=== PATIENT | male | born 1970 | race Caucasian/White ===

== ENCOUNTER 2020-09-05 10:22 | Inpatient (IN) | payer OTHER ==
[2020-09-05] MEDS ORDERED: cloNIDine HCL 0.1 MG TABLET PO PRN (15:30)
[2020-09-05] MEDS ORDERED: MENTHOL/PHENOL 1 EACH UD MM PRN (15:30)
[2020-09-05] MEDS ORDERED: MAG HYDROX/AL HYDROX/SIMETH 30 ML UNIT-DOSE CUP PO PRN (15:30)
[2020-09-05] MEDS ORDERED: methaDONE HCL 10 MG TABLET (FOR DETOX USE ONLY) PO ONE (15:30)
[2020-09-05] MEDS ORDERED: MAGNESIUM HYDROX 2400MG/30ML ORAL SUSPENSION 30 ML CUP PO PRN (15:30)
[2020-09-05] MEDS ORDERED: ACETAMINOPHEN 325 MG TABLET (FP) PO PRN ×2 (15:30)
[2020-09-05] MEDS ORDERED: BISMUTH SUBSALICYLATE 524 MG/30 ML PO PRN (15:30)
[2020-09-05] MEDS ORDERED: MAGNESIUM CITRATE 300 ML BOTTLE PO PRN (15:30)
[2020-09-05] MEDS ORDERED: ONDANSETRON *ODT* 4 MG TABLET SL PRN (15:30)
[2020-09-05] MEDS ORDERED: NICOTINE POLACRILEX 2 MG GUM BUC PRN (15:30)
[2020-09-05 16:15] VITALS: BMI 25.7
[2020-09-05] MEDS: NICOTINE 21 MG/24 HOURS TOPICAL PATCH TD SCH (16:49)
[2020-09-05] MEDS: hydrOXYzine PAMOATE 25 MG CAPSULE (FP) PO SCH ×2 (17:00→22:31)
[2020-09-05 17:13] LABS: CALCIUM 8.5 mg/dL (8.5-10.1)
[2020-09-05 17:14] LABS: ALBUMIN 3.3 g/dl (3.4-5.0); BLOOD UREA NITROGEN 12.4 mg/dL (7-18)
[2020-09-05 17:15] LABS: HEMOGLOBIN 12.6 GM/dL (11.7-16.9); MCH 31.4 pg (25.7-33.7); MCHC 34.1 g/dl (32.0-35.9); MEAN PLT VOLUME 8.4 fl (7.5-11.1); PLATELET COUNT 281 K/MM3 (134-434); RBC 4.02 M/mm3 (4.00-5.60); RDW 14.1 % (11.9-15.9); WHITE BLOOD COUNT 8.3 K/mm3 (4.0-10.0)
[2020-09-05 17:17] LABS: CREATININE 0.7 mg/dL (0.55-1.3)
[2020-09-05 17:19] LABS: BILIRUBIN,TOTAL 1.2 mg/dL (0.2-1); TOT PROT 7.4 g/dl (6.4-8.2)
[2020-09-05] MEDS: THIAMINE HCL 100 MG TABLET (FP) PO SCH (22:31)
[2020-09-05] MEDS: MELATONIN 5 MG TABLETS PO SCH (22:33)
[2020-09-06] MEDS: hydrOXYzine PAMOATE 25 MG CAPSULE (FP) PO SCH ×5 (05:14→21:18)
[2020-09-06] MEDS: IBUPROFEN 400 MG TABLET (FP) PO PRN ×2 (05:20→15:12)
[2020-09-06] MEDS ORDERED: methaDONE HCL 10 MG TABLET (FOR DETOX USE ONLY) ONE (09:11)
[2020-09-06] MEDS: METHOCARBAMOL 500 MG TABLET PO PRN (09:43)
[2020-09-06] MEDS: NICOTINE 21 MG/24 HOURS TOPICAL PATCH TD SCH (09:44)
[2020-09-06] MEDS: PRENATAL VITAMINS W/ FOLIC ACID TABLET (FP) PO SCH (09:45)
[2020-09-06] MEDS: diazePAM 5 MG TABLET PO PRN (17:11)
[2020-09-06] MEDS: THIAMINE HCL 100 MG TABLET (FP) PO SCH (21:18)
[2020-09-06] MEDS: MELATONIN 5 MG TABLETS PO SCH (21:21)
[2020-09-07] MEDS: hydrOXYzine PAMOATE 25 MG CAPSULE (FP) PO SCH ×4 (05:21→18:15)
[2020-09-07] MEDS: IBUPROFEN 400 MG TABLET (FP) PO PRN (09:14)
[2020-09-07] MEDS: METHOCARBAMOL 500 MG TABLET PO PRN ×2 (09:14→19:09)
[2020-09-07] MEDS ORDERED: methaDONE HCL 10 MG TABLET (FOR DETOX USE ONLY) PO ONE (10:00)
[2020-09-07] MEDS: NICOTINE 21 MG/24 HOURS TOPICAL PATCH TD SCH (10:03)
[2020-09-07] MEDS: PRENATAL VITAMINS W/ FOLIC ACID TABLET (FP) PO SCH (10:03)
[2020-09-07] MEDS: CLINDAMYCIN HCL 150 MG CAPSULE (FP) PO SCH ×2 (11:43→17:35)
[2020-09-07] MEDS: CLINDAMYCIN PHOSPHATE 1% TOPICAL GEL 30 GM TUBE TP SCH (11:44)
[2020-09-07] MEDS: diazePAM 5 MG TABLET PO PRN (17:35)
[2020-09-08] MEDS: CLINDAMYCIN PHOSPHATE 1% TOPICAL GEL 30 GM TUBE TP SCH ×3 (00:04→22:05)
[2020-09-08] MEDS: MELATONIN 5 MG TABLETS PO SCH ×2 (00:05→22:05)
[2020-09-08] MEDS: hydrOXYzine PAMOATE 25 MG CAPSULE (FP) PO SCH ×6 (00:06→22:05)
[2020-09-08] MEDS: THIAMINE HCL 100 MG TABLET (FP) PO SCH ×2 (00:07→22:05)
[2020-09-08] MEDS: CLINDAMYCIN HCL 150 MG CAPSULE (FP) PO SCH ×4 (00:32→18:13)
[2020-09-08] MEDS ORDERED: methaDONE HCL 10 MG TABLET (FOR DETOX USE ONLY) ONE (09:25)
[2020-09-08] MEDS: PRENATAL VITAMINS W/ FOLIC ACID TABLET (FP) PO SCH (10:03)
[2020-09-08] MEDS: NICOTINE 21 MG/24 HOURS TOPICAL PATCH TD SCH (10:03)
[2020-09-08] MEDS: IBUPROFEN 400 MG TABLET (FP) PO PRN (10:06)
[2020-09-08] MEDS: diazePAM 5 MG TABLET PO PRN ×3 (12:01→22:07)
[2020-09-08] MEDS: METHOCARBAMOL 500 MG TABLET PO PRN ×2 (12:01→18:15)
[2020-09-08 22:59] VITALS: BP 111/82; PULSE 103; TEMP 97.7
[2020-09-09] MEDS: CLINDAMYCIN HCL 150 MG CAPSULE (FP) PO SCH ×2 (01:33→05:32)
[2020-09-09] MEDS: hydrOXYzine PAMOATE 25 MG CAPSULE (FP) PO SCH (05:32)
[2020-09-09] MEDS ORDERED: cloNIDine HCL 0.1 MG TABLET PO PRN (06:08)
[2020-09-09] MEDS ORDERED: methaDONE HCL 10 MG TABLET (FOR DETOX USE ONLY) PO ONE (10:00)
[2020-09-10] MEDS ORDERED: methaDONE HCL 10 MG TABLET (FOR DETOX USE ONLY) PO ONE (10:00)
== END 2020-09-08 23:54 | disposition short-term general hospital (02) | DRG 773 ==
LOC: YASAS 10:22 → Y6N 15:56 → Y3N 09-08 17:24
PROVIDERS: ADMIT Allergy & Immunology; ATTEND Allergy & Immunology
PROC: HZ2ZZZZ Detoxification Services for Substance Abuse Treatment (ICD-10-PCS; principal; 2020-09-05)
DX: F11.23 Opioid dependence with withdrawal (principal); F14.20 Cocaine dependence, uncomplicated; F17.210 Nicotine dependence, cigarettes, uncomplicated; F32.9 Major depressive disorder, single episode, unspecified; Z21 Asymptomatic human immunodeficiency virus [HIV] infection status; B18.2 Chronic viral hepatitis C; L03.113 Cellulitis of right upper limb; L03.114 Cellulitis of left upper limb; M25.532 Pain in left wrist; M79.642 Pain in left hand; T07.XXXD Unspecified multiple injuries, subsequent encounter; Y09 Assault by unspecified means; Z56.0 Unemployment, unspecified; Z59.0 Homelessness; Z99.89 Dependence on other enabling machines and devices
CPT/HCPCS: 36415; 80053; 85027; 86780; 93005; 93010; 99282-25; C9803; J0735; U0003

== ENCOUNTER 2020-09-08 23:44 | Inpatient (IN) | payer OTHER ==
[2020-09-09] MEDS ORDERED: VANCOMYCIN 1,000 MG in DEXTROSE 5%-WATER - 250 ML IVPB ONE (00:37)
[2020-09-09] MEDS ORDERED: CLINDAMYCIN 600MG PREMIX IVPB 600 MG/50 ML BAG IVPB ONE ×2 (00:37→00:48)
[2020-09-09] MEDS ORDERED: VANCOMYCIN 1 GRAM (PRE-DOCKED) 1,000 MG/250 ML BAG IVPB ONE (00:48)
[2020-09-09] MEDS ORDERED: morphine CARPU-JECT 2 MG/1 ML DISP.SYRIN IVPUSH ONE (01:07)
[2020-09-09 01:14] LABS: BASO % 0.9 % (0-2.0); EOS % 4.8 % (0-4.5); HEMATOCRIT 34.8 % (35.4-49); HEMOGLOBIN 11.4 GM/dL (11.7-16.9); LYMPH % 29.8 % (8-40); MCH 30.9 pg (25.7-33.7); MCHC 32.9 g/dl (32.0-35.9); MEAN CELL VOLUME 93.8 fl (80-96); MEAN PLT VOLUME 8.5 fl (7.5-11.1); MONO % 9.8 % (3.8-10.2); NEUT % 54.7 % (42.8-82.8); PLATELET COUNT 264 K/MM3 (134-434); RBC 3.71 M/mm3 (4.00-5.60); RDW 14.3 % (11.9-15.9); WHITE BLOOD COUNT 7.1 K/mm3 (4.0-10.0)
[2020-09-09] MEDS ORDERED: MORPHINE SULFATE 2 MG/ML VIAL ONE (01:26)
[2020-09-09 01:29] LABS: POTASSIUM 5.2 mmol/L (3.5-5.1)
[2020-09-09 01:31] LABS: CALCIUM 9.2 mg/dL (8.5-10.1)
[2020-09-09 01:32] LABS: ALBUMIN 3.4 g/dl (3.4-5.0)
[2020-09-09 01:36] LABS: BILIRUBIN,TOTAL 0.4 mg/dL (0.2-1); TOT PROT 7.5 g/dl (6.4-8.2)
[2020-09-09 02:31] LABS: ERYTHROCYTE SEDIMENTATION RATE 40 mm/hr (0-10)
[2020-09-09] MEDS ORDERED: FOLIC ACID INJECTION - 1 MG, THIAMINE HCL 100 MG, MULTIVIT INJECTION ADULT 10 ML in SOD... IVPB ONE (06:00)
[2020-09-09] MEDS ORDERED: chlordiazePOXIDE HCL 25 MG CAPSULE PO PRN (08:26)
[2020-09-09] MEDS: NICOTINE 14 MG/24 HOURS TOPICAL PATCH TD SCH (09:37)
[2020-09-09] MEDS: FOLIC ACID 1 MG TABLET (FP) PO SCH (09:37)
[2020-09-09] MEDS: THIAMINE HCL 100 MG TABLET (FP) PO SCH (09:38)
[2020-09-09] MEDS: ACETAMINOPHEN 325 MG TABLET (FP) PO PRN ×2 (09:38→22:05)
[2020-09-09] MEDS: ENOXAPARIN NA (PORCINE) 40 MG/0.4 ML DISP.SYRIN SQ SCH (09:39)
[2020-09-09] MEDS ORDERED: FLU VACCINE (FLULAVAL) PF 60 MCG/0.5 ML SYRINGE 2020-2021 IM ONE (10:30)
[2020-09-09] MEDS ORDERED: PNEUMOC 13-VAL CONJ-DIP CRM/PF 0.5 ML DISP.SYRIN IM ONE (10:30)
[2020-09-09] MEDS ORDERED: METHADONE HCL 10 MG TABLET PO ONE (13:05)
[2020-09-09 13:09] VITALS: BMI 17.4
[2020-09-09 13:43] LABS: BASO % 1.1 % (0-2.0); EOS % 4.7 % (0-4.5); HEMATOCRIT 34.6 % (35.4-49); HEMOGLOBIN 11.3 GM/dL (11.7-16.9); LYMPH % 27.5 % (8-40); MCH 30.6 pg (25.7-33.7); MCHC 32.8 g/dl (32.0-35.9); MEAN CELL VOLUME 93.2 fl (80-96); MEAN PLT VOLUME 9.1 fl (7.5-11.1); MONO % 8.5 % (3.8-10.2); NEUT % 58.2 % (42.8-82.8); PLATELET COUNT 267 K/MM3 (134-434); RBC 3.71 M/mm3 (4.00-5.60); RDW 13.8 % (11.9-15.9); RETICULOCYTES 0.94 % (0.5-1.5); WHITE BLOOD COUNT 5.6 K/mm3 (4.0-10.0)
[2020-09-09 14:02] LABS: POTASSIUM 4.6 mmol/L (3.5-5.1)
[2020-09-09 14:06] LABS: CALCIUM 8.3 mg/dL (8.5-10.1)
[2020-09-09 14:07] LABS: BLOOD UREA NITROGEN 14.8 mg/dL (7-18); MAGNESIUM 1.9 mg/dL (1.8-2.4)
[2020-09-09 14:09] LABS: URIC ACID 2.9 mg/dL (2.6-7.2)
[2020-09-09 14:10] LABS: CREATININE 0.7 mg/dL (0.55-1.3)
[2020-09-09 14:11] LABS: BILIRUBIN,TOTAL 0.6 mg/dL (0.2-1); TOT PROT 6.9 g/dl (6.4-8.2)
[2020-09-10 08:27] LABS: BASO % 0.9 % (0-2.0); EOS % 4.3 % (0-4.5); HEMATOCRIT 36.6 % (35.4-49); HEMOGLOBIN 12.2 GM/dL (11.7-16.9); LYMPH % 24.2 % (8-40); MCH 31.1 pg (25.7-33.7); MCHC 33.4 g/dl (32.0-35.9); MEAN CELL VOLUME 93.1 fl (80-96); MEAN PLT VOLUME 8.8 fl (7.5-11.1); MONO % 9.3 % (3.8-10.2); NEUT % 61.3 % (42.8-82.8); PLATELET COUNT 289 K/MM3 (134-434); RBC 3.93 M/mm3 (4.00-5.60); RDW 13.7 % (11.9-15.9)
[2020-09-10 08:46] LABS: POTASSIUM 4.7 mmol/L (3.5-5.1)
[2020-09-10 08:48] LABS: BLOOD UREA NITROGEN 19.4 mg/dL (7-18); CALCIUM 8.9 mg/dL (8.5-10.1); MAGNESIUM 2.3 mg/dL (1.8-2.4)
[2020-09-10 08:52] LABS: CREATININE 0.9 mg/dL (0.55-1.3)
[2020-09-10] MEDS: ENOXAPARIN NA (PORCINE) 40 MG/0.4 ML DISP.SYRIN SQ SCH (10:21)
[2020-09-10] MEDS: THIAMINE HCL 100 MG TABLET (FP) PO SCH (10:21)
[2020-09-10] MEDS: NICOTINE 14 MG/24 HOURS TOPICAL PATCH TD SCH (10:21)
[2020-09-10] MEDS: FOLIC ACID 1 MG TABLET (FP) PO SCH (10:21)
[2020-09-10] MEDS ORDERED: METHADONE HCL 5 MG TABLET PO ONE (13:05)
[2020-09-10] MEDS: ACETAMINOPHEN 325 MG TABLET (FP) PO PRN (16:05)
[2020-09-11] MEDS ORDERED: PT OWN MED DRAWER 7, Y5N ONE (06:59)
[2020-09-11] MEDS: FOLIC ACID 1 MG TABLET (FP) PO SCH (09:10)
[2020-09-11] MEDS: NICOTINE 14 MG/24 HOURS TOPICAL PATCH TD SCH (09:10)
[2020-09-11] MEDS: THIAMINE HCL 100 MG TABLET (FP) PO SCH (09:10)
[2020-09-11] MEDS: ENOXAPARIN NA (PORCINE) 40 MG/0.4 ML DISP.SYRIN SQ SCH (09:11)
[2020-09-11 10:01] VITALS: BP 125/74; PULSE 86; TEMP 98
== END 2020-09-11 11:08 | disposition other institution (70) | DRG 351 ==
LOC: JER 23:44 → JERBED 09-09 02:52 → J8W 09-09 09:11
PROVIDERS: ADMIT Internal Medicine; ATTEND Internal Medicine
PROC: HZ2ZZZZ Detoxification Services for Substance Abuse Treatment (ICD-10-PCS; principal; 2020-09-09)
DX: M79.89 Other specified soft tissue disorders (principal); F11.20 Opioid dependence, uncomplicated; F14.10 Cocaine abuse, uncomplicated; D64.9 Anemia, unspecified; F17.210 Nicotine dependence, cigarettes, uncomplicated; B19.20 Unspecified viral hepatitis C without hepatic coma; E87.5 Hyperkalemia; Z21 Asymptomatic human immunodeficiency virus [HIV] infection status
CPT/HCPCS: 36415; 71045-TC-FY; 73130-TC-LT-FY; 73200-TC-RT; 80048; 80053; 82728; 82746; 83540; 83550; 83735; 84100; 84550; 85025; 85045; 85651; 86038; 86140; 86359; 86360; 87536; 90670; 93005; 93010; 99285-25; C9803; G0008; G0009; Q2036; U0003

== ENCOUNTER 2020-09-11 11:28 | Inpatient (IN) | payer OTHER ==
[2020-09-11] MEDS ORDERED: P-EPHED 60MG/TRIPROLIDI 2.5MG TABLET PO PRN (12:21)
[2020-09-11] MEDS ORDERED: MAGNESIUM CITRATE 300 ML BOTTLE PO PRN (12:21)
[2020-09-11] MEDS ORDERED: LOPERAMIDE HCL 2 MG CAPSULE PO PRN (12:21)
[2020-09-11] MEDS ORDERED: MAG HYDROX/AL HYDROX/SIMETH 30 ML UNIT-DOSE CUP PO PRN (12:21)
[2020-09-11] MEDS ORDERED: NICOTINE POLACRILEX 2 MG GUM BUC PRN (12:21)
[2020-09-11] MEDS ORDERED: MAGNESIUM HYDROX 2400MG/30ML ORAL SUSPENSION 30 ML CUP PO PRN (12:21)
[2020-09-11] MEDS ORDERED: guaiFENesin 200 MG/10 ML 10 ML UNIT-DOSE CUPS PO PRN (12:21)
[2020-09-11] MEDS ORDERED: ACETAMINOPHEN 325 MG TABLET (FP) PO PRN ×2 (12:21→12:22)
[2020-09-11 12:42] VITALS: BMI 25.7
[2020-09-11] MEDS: NICOTINE 7 MG/24 HOURS TOPICAL PATCH TD SCH (13:27)
[2020-09-11] MEDS: PRENATAL VITAMINS W/ FOLIC ACID TABLET (FP) PO SCH (13:28)
[2020-09-11] MEDS: hydrOXYzine PAMOATE 25 MG CAPSULE (FP) PO SCH ×4 (13:34→21:09)
[2020-09-11] MEDS: IBUPROFEN 400 MG TABLET (FP) PO PRN (21:06)
[2020-09-11] MEDS: THIAMINE HCL 100 MG TABLET (FP) PO SCH (21:09)
[2020-09-11] MEDS: MELATONIN 5 MG TABLETS PO SCH (21:09)
[2020-09-12] MEDS: hydrOXYzine PAMOATE 25 MG CAPSULE (FP) PO SCH ×3 (06:27→13:24)
[2020-09-12] MEDS ORDERED: MASKS NR ONE (07:05)
[2020-09-12] MEDS: METHOCARBAMOL 500 MG TABLET PO PRN ×2 (09:56→21:02)
[2020-09-12] MEDS: IBUPROFEN 400 MG TABLET (FP) PO PRN ×2 (09:56→19:31)
[2020-09-12] MEDS: NICOTINE 7 MG/24 HOURS TOPICAL PATCH TD SCH (09:57)
[2020-09-12] MEDS: PRENATAL VITAMINS W/ FOLIC ACID TABLET (FP) PO SCH (09:57)
[2020-09-12] MEDS: METHYL SALICYLATE/MENTHOL OINT 30 GM TUBE TP SCH ×2 (13:24→21:04)
[2020-09-12] MEDS: hydrOXYzine PAMOATE 50 MG CAPSULE (FP) PO PRN ×2 (16:15→21:02)
[2020-09-12] MEDS ORDERED: SUVOREXANT 10 MG TABLET PO PRN (17:17)
[2020-09-12] MEDS: MELATONIN 5 MG TABLETS PO SCH (21:03)
[2020-09-12] MEDS: THIAMINE HCL 100 MG TABLET (FP) PO SCH (21:03)
[2020-09-12] MEDS: risperiDONE 1 MG TABLET PO SCH (21:04)
[2020-09-13] MEDS: hydrOXYzine PAMOATE 50 MG CAPSULE (FP) PO PRN (06:06)
[2020-09-13] MEDS: IBUPROFEN 400 MG TABLET (FP) PO PRN (06:07)
[2020-09-13 07:03] VITALS: BP 128/81; PULSE 110; TEMP 97.9
[2020-09-13] MEDS: risperiDONE 1 MG TABLET PO SCH (09:07)
[2020-09-13] MEDS: METHYL SALICYLATE/MENTHOL OINT 30 GM TUBE TP SCH (09:08)
[2020-09-13] MEDS: NICOTINE 7 MG/24 HOURS TOPICAL PATCH TD SCH (09:08)
[2020-09-13] MEDS: PRENATAL VITAMINS W/ FOLIC ACID TABLET (FP) PO SCH (09:08)
== END 2020-09-13 10:07 | disposition left against medical advice (07) | DRG 770 ==
LOC: YASAS 11:28 → Y5N 12:51
PROVIDERS: ADMIT Allergy & Immunology; ATTEND Allergy & Immunology
PROC: HZ42ZZZ Group Counseling for Substance Abuse Treatment, Cognitive-Behavioral (ICD-10-PCS; principal; 2020-09-12)
DX: F11.20 Opioid dependence, uncomplicated (principal); F14.20 Cocaine dependence, uncomplicated; F17.210 Nicotine dependence, cigarettes, uncomplicated; F32.9 Major depressive disorder, single episode, unspecified; B18.2 Chronic viral hepatitis C; Z21 Asymptomatic human immunodeficiency virus [HIV] infection status; M79.642 Pain in left hand; M79.89 Other specified soft tissue disorders; T07.XXXD Unspecified multiple injuries, subsequent encounter; Y09 Assault by unspecified means
CPT/HCPCS: J2794

== ENCOUNTER 2022-10-01 12:08 | Inpatient (IN) | payer OTHER ==
[2022-10-01 13:03] VITALS: BMI 16.4
[2022-10-01] MEDS ORDERED: MAGNESIUM HYDROX 2400MG/30ML ORAL SUSPENSION 30 ML CUP PO PRN (13:44)
[2022-10-01] MEDS ORDERED: hydrOXYzine PAMOATE 25 MG CAPSULE (FP) PO PRN (13:44)
[2022-10-01] MEDS ORDERED: MAG HYDROX/AL HYDROX/SIMETH 30 ML UNIT-DOSE CUP PO PRN (13:44)
[2022-10-01] MEDS ORDERED: BISMUTH SUBSALICYLATE 524 MG/30 ML PO PRN (13:44)
[2022-10-01] MEDS ORDERED: NICOTINE 10 MG CARTRIDGE (INHALER) IH PRN (13:44)
[2022-10-01] MEDS ORDERED: POLYETHYLENE GLYCOL (HEALTHYLAX) 3350 17 GM PACKET PO PRN (13:44)
[2022-10-01] MEDS ORDERED: ACETAMINOPHEN 325 MG TABLET (FP) PO PRN ×2 (13:44)
[2022-10-01] MEDS ORDERED: BENZOCAINE/MENTHOL (CHLORASEPTIC ) LOZENGE MM PRN (13:44)
[2022-10-01] MEDS ORDERED: DICYCLOMINE HCL 10 MG CAPSULE PO PRN (13:44)
[2022-10-01] MEDS ORDERED: NALOXONE HCL (KLOXXADO) 8 MG SPRAY NS PRN (13:44)
[2022-10-01] MEDS ORDERED: IBUPROFEN 400 MG TABLET (FP) PO PRN (13:44)
[2022-10-01] MEDS ORDERED: IBUPROFEN 600 MG TABLET (FP) PO PRN (13:44)
[2022-10-01] MEDS ORDERED: LOPERAMIDE HCL 2 MG CAPSULE PO PRN (13:44)
[2022-10-01] MEDS ORDERED: ONDANSETRON *ODT* 4 MG TABLET SL PRN (13:44)
[2022-10-01] MEDS: THIAMINE HCL 100 MG TABLET (FP) PO SCH (22:50)
[2022-10-01] MEDS: MELATONIN 5 MG TABLETS PO SCH (22:50)
[2022-10-02] MEDS ORDERED: cloNIDine HCL 0.1 MG TABLET PO PRN (08:39)
[2022-10-02] MEDS ORDERED: methaDONE HCL 10 MG TABLET (FOR DETOX USE ONLY) PO ONE (08:39)
[2022-10-02] MEDS: PRENATAL VITAMINS W/ FOLIC ACID TABLET (FP) PO SCH (09:52)
[2022-10-02] MEDS: METHOCARBAMOL 500 MG TABLET PO PRN (09:52)
[2022-10-02 11:37] LABS: HEMATOCRIT 42.2 % (35.4-49); HEMOGLOBIN 14.3 GM/dL (11.7-16.9); MCH 30.6 pg (25.7-33.7); MCHC 33.8 g/dl (32.0-35.9); MEAN CELL VOLUME 90.6 fl (80-96); MEAN PLT VOLUME 9.2 fl (7.5-11.1); PLATELET COUNT 227 10^3/uL (134-434); RBC 4.65 M/mm3 (4.00-5.60); RDW 13.9 % (11.9-15.9)
[2022-10-02 12:56] LABS: CALCIUM 8.3 mg/dL (8.5-10.1)
[2022-10-02 12:58] LABS: ALBUMIN 3.2 g/dl (3.4-5.0); BLOOD UREA NITROGEN 12.3 mg/dL (7-18)
[2022-10-02 13:01] LABS: CREATININE 0.8 mg/dL (0.55-1.3)
[2022-10-02 13:02] LABS: BILIRUBIN,TOTAL 0.8 mg/dL (0.2-1); TOT PROT 7.2 g/dl (6.4-8.2)
[2022-10-02] MEDS: THIAMINE HCL 100 MG TABLET (FP) PO SCH (22:39)
[2022-10-02] MEDS: MELATONIN 5 MG TABLETS PO SCH (22:39)
[2022-10-03 06:52] VITALS: PULSE 86
[2022-10-03] MEDS ORDERED: diazePAM 5 MG TABLET PO PRN (08:43)
[2022-10-03] MEDS: METHOCARBAMOL 500 MG TABLET PO PRN (08:44)
[2022-10-03 09:41] VITALS: BP 131/99; RESP 16; TEMP 97
[2022-10-03] MEDS: PRENATAL VITAMINS W/ FOLIC ACID TABLET (FP) PO SCH (10:33)
[2022-10-04] MEDS ORDERED: methaDONE HCL 10 MG TABLET (FOR DETOX USE ONLY) PO ONE (10:00)
[2022-10-06] MEDS ORDERED: methaDONE HCL 10 MG TABLET (FOR DETOX USE ONLY) PO ONE (10:00)
== END 2022-10-03 10:48 | disposition left against medical advice (07) | DRG 770 ==
LOC: YASAS 12:08 → Y3N 13:53
PROVIDERS: ADMIT Allergy & Immunology; ATTEND Family Medicine
PROC: HZ2ZZZZ Detoxification Services for Substance Abuse Treatment (ICD-10-PCS; principal; 2022-10-01)
DX: F11.23 Opioid dependence with withdrawal (principal); F14.20 Cocaine dependence, uncomplicated; F17.210 Nicotine dependence, cigarettes, uncomplicated; F32.A Depression, unspecified; Z21 Asymptomatic human immunodeficiency virus [HIV] infection status; Z86.19 Personal history of other infectious and parasitic diseases
CPT/HCPCS: 36415; 80053; 85027; 86780; C9803-CS; U0003; U0005